=== PATIENT | male | born 1970 ===

== ENCOUNTER 2016-12-25 13:37 | Emergency (ER) | payer OTHER ==
[2016-12-25 14:24] VITALS: BP 115/73; PULSE 90; RESP 16; TEMP 98.5; O2SAT 98
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
--- NOTE | 2016-12-25 15:50 | RAD ---
PROCEDURE: Cervical Spine Radiographs. HISTORY: Pain. COMPARISON: None. FINDINGS: BONES: There is straightening of the cervical spine with loss of normal cervical lordosis. Vertebral alignment is normal. Vertebral height is normal. There is no acute fracture or traumatic anterior listhesis. The craniocervical junction is normal. The atlantoaxial joint is normal. DISC SPACES: Normal. SOFT TISSUES: There is nuchal ligament ossification at C4. No prevertebral soft tissue swelling. OTHER FINDINGS: None. IMPRESSION: No acute fracture or traumatic anterior listhesis. Straightening of the cervical spine may be positional or related to muscle spasm.
== END 2016-12-25 15:40 | disposition home or self-care (01) ==
LOC: C.ER 13:37
DX: S13.4XXA Sprain of ligaments of cervical spine, initial encounter (principal); V89.2XXA Person injured in unspecified motor-vehicle accident, traffic, initial encounter